=== PATIENT | female | born 1960 | race African-American/Black ===

== ENCOUNTER → 2018-07-06 | Outpatient (CLI) | payer OTHER ==
--- NOTE | 2018-07-06 11:58 | KCIC ---
Limited ultrasound abdomen 07/06/2018 INDICATION: Right upper quadrant abdominal pain. COMPARISON: None available. TECHNIQUE: Sonographic evaluation of the right upper quadrant was performed utilizing grayscale and color Doppler. FINDINGS: Visualized portions of the superior normal. Body and tail are obscured by bowel gas. Proximal aorta measures 2.9 cm. Mid aorta measures 1.9 cm. Distal aorta measures 1.7 cm. IVC is patent. There is increased echogenicity of the hepatic parenchyma suggestive of hepatocellular disease, most commonly hepatic steatosis. There is hepatopedal flow within the main portal vein. There is no intrahepatic or extrahepatic biliary ductal dilatation. Common bile duct measures up to 3 mm. The right hepatic lobe measures 13.5 cm. Gallbladder is normal in appearance without evidence for gallstones, gallbladder wall thickening or pericholecystic fluid. The right kidney measures 10.1 x 4.0 x 5.1 cm. There is no hydronephrosis. No renal calculi are identified. No cystic or solid masses. No free fluid is identified in the right upper quadrant. IMPRESSION: 1. There is increased echogenicity of the hepatic parenchyma suggestive of hepatocellular disease, most commonly hepatic steatosis. This limits evaluation for hepatic masses. 2. No intrahepatic or extrahepatic biliary ductal dilatation. Gallbladder is normal. Electronically signed by: Vivien Raya MD (07/06/2018 11:53 AM) [facility]-[id number]
--- NOTE | 2018-07-08 14:47 | KCIC ---
Bilateral digital screening mammograms: Reason for examination: Routine screening. Comparison is made to previous studies dated 03/27/2011 and 03/28/2010. Interpretation was made with the benefit of CAD. The skin and nipples show no abnormalities. No abnormal axillary lymph nodes are seen. The breast parenchyma shows scattered fibroglandular density. (Breast density: Category B.) There appears to be interval decrease in small nodular densities seen previously. There are no new dominant masses, suspicious calcifications or architectural distortions. Impression: No evidence of malignancy. Recommend routine screening. BI-RADS Category 2: Benign. "Our facility is accredited by the [employer] Mammography Program." This patient's information has been entered into a reminder system for the patient to be notified with the results of her examination and a target date for the next mammogram. Electronically signed by: Karen Mike MD (07/08/2018 2:43 PM) [id number]
== END | disposition home or self-care (01) ==
LOC: KCIC US 08:43
PROVIDERS: ATTEND Nurse Practitioner Family
DX: Z12.31 Encounter for screening mammogram for malignant neoplasm of breast (principal); R10.11 Right upper quadrant pain
CPT/HCPCS: 76705; 77067

== ENCOUNTER → 2019-05-19 | Day surgery (SDC) | payer OTHER ==
[~2019-05-19] MED LIST: ACET325T9 PO; ASPI-630 PO; IV RINGERS,LACTATED 1000ML 1,000 ML IV ONE; IV RINGERS,LACTATED 1000ML 1,000 ML IV SCH; LIDOCAINE 2% PF 5 ML VIAL. ONE; LISI-334 PO; LOVA40TA2 PO; MELO15TA23 PO; PANT20TA2 PO; PROPOFOL 60 ML IV ONE; TRAM50TA PO
--- NOTE | 2019-05-19 11:02 | PREOP HP ---
DATE OF SERVICE: 05/19/2019 REQUESTING PHYSICIAN: Leonor Jacobo APRN PRIMARY CARE PHYSICIAN: Leonor Jacobo APRN REASON FOR PROCEDURE: Epigastric pain and colon cancer screening. HISTORY OF PRESENT ILLNESS: This is a 59-year-old female who presents with epigastric pain and for colorectal cancer screening. ALLERGIES: CODEINE. PAST MEDICAL HISTORY: 1. Depression. 2. Fibromyalgia. 3. Hypertension. 4. Hypercholesterolemia. FAMILY MEDICAL HISTORY: Negative for colorectal cancer. Significant for ulcerative colitis in her mother. MEDICATIONS: MAR reviewed. REVIEW OF SYSTEMS: A 13-point review of systems was done. It is positive as per HPI and otherwise negative. PHYSICAL EXAMINATION: GENERAL: She is a well-developed, well-nourished -[place] female, in no apparent distress. HEENT: Oropharynx is clear. CARDIOVASCULAR: S1, S2. LUNGS: Clear. ABDOMEN: Normoactive bowel sounds, soft, nontender, nondistended. EXTREMITIES: No edema. NEUROLOGIC: Awake, alert and oriented x 3. ASSESSMENT AND PLAN: 1. Epigastric pain. Proceed with upper endoscopy for further evaluation. The risks and benefits including bleeding, perforation, non-diagnosis and sedation have been explained and she has agreed to proceed. 2. Colorectal cancer screening. The risks and benefits of colonoscopy including bleeding, perforation, non-diagnosis and sedation have been explained and she has agreed to proceed. RU MILTON MD DR: MADDISON/sarah JOB#: [id number] / [id number]
[2019-05-19 11:03] VITALS: BP 179/96
--- NOTE | 2019-05-20 18:06 | PATHOLOGY ---
[facility] Accession Number: [id number] . 01 Material submitted: . PART A: small bowel - SMALL BOWEL BIOPSY PART B: stomach - GASTRIC ANTRUM AND BODY. Modifiers: body PART C: esophagus - DISTAL ESOPHAGUS BIOPSY. Modifiers: distal PART D: colon - SIGMOID BIOPSY. Modifiers: sigmoid . 01 Clinical history: . Dysphagia, CRCS . 02 Diagnosis: A. Small bowel biopsies: - No significant pathologic abnormalities. . B. Gastric biopsies, gastric antrum and gastric body: - Chronic gastritis, moderate. . C. Esophageal biopsies, distal esophagus: - Segments of gastric mucosa showing moderate chronic inflammation. . D. Colon biopsy, sigmoid colon: - Prominent mucosal fold. (JPM:mir; 05/20/2019) S 05/20/2019 1057 Local . 02 Comment: Sections of the small bowel biopsy reveal segments of small intestine and duodenal mucosa. Where best oriented, the mucosal villi show no sprue-like changes or significant inflammatory changes. . Sections of the gastric biopsy reveal segments of gastric antral and antral/body transition mucosa showing congestion and moderate chronic inflammation. A properly controlled immunoperoxidase stain for Helicobacter is negative for Helicobacter organism. . Sections of the distal esophageal biopsy reveal segments of gastric mucosa showing moderate chronic inflammation. There is no squamous esophageal mucosa. There are a few goblet cells present within the surface epithelium. There is no evidence of Darby's change, dysplasia, or malignancy. . Sections of the sigmoid colon biopsy reveal a segment of colonic mucosa having features of prominent mucosal fold. There are no adenomatous changes or evdience of malignancy. (JPM:mir; 05/20/2019) . . Special stain performed: Immunoperoxidase stain for Helicobacter on B1 . Electronically signed: . Kobe Tinoco MD, Pathologist NPI- [id number] . 01 Gross description: . A. Received in formalin labeled "Yoshi, Violet[place], small bowel BX," are multiple segments of barber soft tissue measuring 0.8 x 0.3 x 0.1 cm in aggregate dimensions. The specimen is filtered and entirely submitted in cassette A1. . B. Received in formalin labeled "Yoshi, Violetta, gastric antrum and body BX," are 4 segments of barber soft tissue measuring 0.9 x 0.6 x 0.1 cm in aggregate dimensions and ranging from 0.3 to 0.6 cm in maximum dimension. The specimen is submitted entirely in cassette B1. . C. Received in formalin labeled "[place], Violetta, distal esophagus BX," are 4 segments of barber soft tissue measuring 0.5 x 0.5 x 0.2 cm in aggregate dimensions and ranging from 0.3 to 0.5 cm in maximum dimension. The specimen is submitted entirely in cassette C1. . D. Received in formalin labeled "[place], Violetta, sigmoid polyp," is a single segment of barber soft tissue measuring 0.4 cm in maximum dimension. The specimen is entirely submitted in cassette D1. (TSD; 05/19/2019) TOB/TOB 05/19/2019 1754 Local . 02 Pathologist provided ICD-10: K29.50, R13.10 . 02 CPT . 276946, 957681, 546913, [id number], [id number] Specimen Comment: A courtesy copy of this report has been sent to [phone], [phone] Specimen Comment: [id number] Specimen Comment: Report sent to and Performed at: 01 [facility] [address], [place] [id number] MD Ten Pagan MD Phone: [phone] Performed at: 02 [facility] [address], [place] [id number] MD Kobe Tinoco MD Phone: [phone]
== END ==
LOC: ENDOS 08:14
PROVIDERS: ATTEND Internal Medicine Gastroenterology
DX: Z12.11 Encounter for screening for malignant neoplasm of colon (principal); K62.1 Rectal polyp; K29.50 Unspecified chronic gastritis without bleeding; K21.0 Gastro-esophageal reflux disease with esophagitis; K64.0 First degree hemorrhoids; I10 Essential (primary) hypertension; E78.00 Pure hypercholesterolemia, unspecified; M79.7 Fibromyalgia; F32.9 Major depressive disorder, single episode, unspecified
CPT/HCPCS: 43239; 45380; 88305; 88342; J2001; J2704

== ENCOUNTER → 2019-12-14 | Outpatient (CLI) | payer OTHER ==
[2019-05-19 11:03] VITALS: BP 179/96
[~2019-12-14] MED LIST changes: -IV RINGERS,LACTATED 1000ML 1,000 ML IV ONE; -IV RINGERS,LACTATED 1000ML 1,000 ML IV SCH; -LIDOCAINE 2% PF 5 ML VIAL. ONE; -PROPOFOL 60 ML IV ONE
--- NOTE | 2019-12-14 15:58 | KCIC ---
LEFT HAND, VIEWS 3 Indication: Reason: RT HAND PAIN THUMB SIDE S/P FALL 3 WEEKS AGO / Spl. Instructions: / History: Findings: There is no acute fracture or dislocation. There is no bony erosion. Mineralization is normal. There is no radiographically apparent soft tissue swelling or radiopaque foreign body. There are large marginal osteophytes of the third and fourth DIP joints. Small marginal osteophytes fourth PIP joint. Mild narrowing fifth MCP. Joint spaces otherwise maintained. IMPRESSION: No acute fracture. Electronically signed by: Jose Angel Montoya MD (12/14/2019 3:55 PM) [id number]
== END | disposition home or self-care (01) ==
LOC: KCIC 10:50
PROVIDERS: ATTEND Nurse Practitioner Family
DX: S69.91XA Unspecified injury of right wrist, hand and finger(s), initial encounter (principal); X58.XXXA Exposure to other specified factors, initial encounter; Y93.89 Activity, other specified; Y92.89 Other specified places as the place of occurrence of the external cause; Y99.8 Other external cause status; M25.731 Osteophyte, right wrist
CPT/HCPCS: 73130

== ENCOUNTER → 2020-03-26 | Outpatient (CLI) | payer OTHER ==
[2019-05-19 11:03] VITALS: BP 179/96
--- NOTE | 2020-03-26 09:53 | KCIC ---
EXAM: Dual energy x-ray absorptiometry (DEXA). HISTORY: SURGICAL MENOPAUSE. COMPARISON: None available. TECHNIQUE: Dual energy x-ray absorptiometry of the lumbar spine and left hip was performed. Calculation of bone mineral density based on standard deviations above or below the expected young adult normal value (T-score) was completed. FINDINGS: LUMBAR SPINE: The AVG BMD OF the L1-L3 region = 1.428 gm/cm2, T-score = 3.7, Z-score = 4.5. Findings are consistent with normal BMD. Degenerative changes are noted in the lumbar spine. This can artificially elevate the calculation of bone density. Femoral Necks: The BMD of the left femoral neck = 1.329 gm/cm2, T-score = 3.2, Z-score = 2.. The Findings are consistent with normal BMD. IMPRESSION: Normal bone mineral density in the spine and left hip. Electronically signed by: Anjel Grace MD (03/26/2020 9:50 AM) [id number]
--- NOTE | 2020-03-26 19:06 | KCIC ---
BILATERAL SCREENING MAMMOGRAM History: Routine screening. Comparison: Bilateral mammogram July 06, 2018. Technique: Routine bilateral digital mammogram views were obtained. Findings: Breast Tissue Density B : There are scattered areas of fibroglandular density. There appears to be deodorant artifact in the axilla, more apparent on the right. There is a presumed prominent skinfold in the right axilla. There are no dominant masses, suspicious microcalcifications, or architectural distortion. IMPRESSION: No mammographic evidence of malignancy. Recommend routine screening. BI-RADS category 2: Benign findings. The images were reviewed with computer aided detection. Patient information is entered into the reminder system with a target due date for the next screening mammogram. Mammography is the most sensitive method for finding small breast cancers, but it does not detect them all and is not a substitute for careful clinical examination. A negative mammogram does not negate a clinically suspicious finding and should not result in delay in biopsying a clinically suspicious abnormality. "Our facility is accredited by the [employer] Mammography Program." Electronically signed by: Jose Angel Montoya MD (03/26/2020 7:03 PM) [id number]
== END ==
LOC: KCIC MAMMO 08:50
PROVIDERS: ATTEND Nurse Practitioner Family
DX: Z12.31 Encounter for screening mammogram for malignant neoplasm of breast (principal); Z78.0 Asymptomatic menopausal state; M47.816 Spondylosis without myelopathy or radiculopathy, lumbar region
CPT/HCPCS: 77067; 77080

== ENCOUNTER → 2020-07-13 | Outpatient (CLI) | payer OTHER ==
[2019-05-19 11:03] VITALS: BP 179/96
[~2020-07-13] MED LIST changes: -LISI-334 PO; +LISI20TA18 PO
--- NOTE | 2020-07-13 08:54 | RAD ---
EXAM: Gallbladder Ultrasound INDICATION: Reason: RUQ PAIN / Spl. Instructions: / History: TECHNIQUE: Real-time ultrasound of the gallbladder was performed with permanent freeze-frame documen tation. COMPARISON: None FINDINGS: BILIARY:?Gallbladder is unremarkable. No biliary ductal dilatation. The common bile duct measures 0 p oint cm. OTHER: Visualized liver and pancreas are unremarkable. The IVC is not well visualized. The right kidn ey contains a 5 mm superior pole nonobstructing kidney stone. IMPRESSION: 1. Apart from nonobstructing 5 mm stone in right kidney, ultrasound right upper quadrant abdomen is u nremarkable. Electronically signed by: Lindsey Long MD (07/13/2020 8:51 AM) [id number]
== END ==
LOC: US 09:25
PROVIDERS: ATTEND Nurse Practitioner Family
DX: N20.0 Calculus of kidney (principal)
CPT/HCPCS: 76705

== ENCOUNTER 2021-10-08 11:21 | Emergency (ER) | payer OTHER ==
[~2021-10-08] VITALS: Ht 162.6 cm; Wt 89.0 kg
[2021-10-08 11:29] VITALS: BP 148/93
--- NOTE | 2021-10-08 11:39 | PHYS DOC ---
Past Medical History Past Medical History: Bronchitis, Hypertension Past Surgical History: Hysterectomy, Other Additional Past Surgical Histo: left rotator cuff; bilateral knee Alcohol Use: None Drug Use: None Adult General Chief Complaint Chief Complaint: KNEE INJURY [facility] Patient is a 61 year old female who presents with bilateral knee pain after a fall. Patient describes that she had a mechanical fall on Thursday, 48 hours ago. She landed on both knees. She comes to the ER today complaining of pain in the right knee and the left. Left knee is worse and did sustain some minor abrasions. She has been able to weight-bear although with discomfort. No other injuries are reported Review of Systems Review of Systems Constitutional: Denies fever or chills HENT: Denies Respiratory: Denies Cardiovascular: No additional information GI: Denies Musculoskeletal: As documented in HPI Integument: Denies rash or skin lesions Neurologic: Denies headache All other systems were reviewed and found to be within normal limits, except as documented in this note. Allergies Allergies Allergies Coded Allergies Type Severity Reaction Last Updated Verified codeine Allergy Severe pass out, abd pain 05/19/19 Yes gabapentin Allergy Unknown UNKNOWN 10/08/21 Yes pregabalin Allergy Unknown UNKNOWN 10/08/21 Yes Physical Exam Physical Exam Constitutional: Well developed, well nourished, no acute distress, non-toxic appearance HENT: Normocephalic, atraumatic, bilateral external ears normal Eyes: PERRLA Neck: Normal range of motion Lungs & Thorax: normal respiratory effort Abdomen: Bowel sounds normal, soft Skin: Warm, dry Back: Normal ROM Extremities: No gross deformity about the right knee. Some mild subjective tenderness with passive range of motion. No effusion. The left knee has very subtle soft tissue swelling and a couple of superficial abrasions on the anterior aspect. Otherwise, also has a normal exam. Neurologic: Alert and oriented X 3 Psychologic: Affect normal Current Patient Data Vital Signs Vital Signs Date Time Temp Pulse Resp B/P (MAP) Pulse Ox O2 Delivery O2 Flow Rate FiO2 10/08/21 11:29 98.3 82 16 148/93 (111) 97 Room Air 98.3 EKG EKG [] Radiology/Procedures Radiology/Procedures [] Course & Med Decision Making Course & Med Decision Making Pertinent Labs and Imaging studies reviewed. (See chart for details) 11:45: Seen and examined. Plain film imaging ordered. Minor abrasions are noted on the left knee but patient does not need tetanus immunization today. No other more severe injuries present. 13:00: X-rays are completed. No acute findings. Patient is stable for discharge home. Recommended she use [id number] medications as needed. Follow-up with primary care doctor if she continues to have pain after 1 to 2 weeks. Dragon Disclaimer Dragon Disclaimer This electronic medical record was generated, in whole or in part, using a voice recognition dictation system. Departure Departure Impression: Primary Impression: Contusion, knee Disposition: 01 HOME / SELF CARE / HOMELESS Condition: GOOD Referrals: LIAM TAYLOR APRN (PCP) Patient Instructions: Contusion, Trom-fi-Opcu HUMZA CAMPUZANO DO October 08, 2021 11:39
--- NOTE | 2021-10-08 12:35 | RAD ---
EXAM: XR KNEE 3 VIEWS 10/08/2021 11:52 AM CLINICAL INDICATION: Fall, bilateral knee pain right greater than left COMPARISON: None TECHNIQUE: AP, oblique, and lateral views of the right and left knee FINDINGS: No acute fracture. Alignment is normal. There is mild degenerative joint disease of the kn ees, greatest in the medial compartments. No joint effusion. Soft tissues normal. IMPRESSION: No acute osseous abnormality. Mild bilateral degenerative joint disease. Electronically signed by: Sherry Stafford MD (10/08/2021 12:32 PM) [id number]
[2021-10-08] MEDS ORDERED: traMADol 50 MG TABLET PO ONE (13:15)
[2021-10-08] MEDS ORDERED: traMADol 50 MG TABLET ONE (13:15)
== END 2021-10-08 13:17 | disposition home or self-care (01) ==
LOC: ER 11:21
DX: S80.02XA Contusion of left knee, initial encounter (principal); S80.01XA Contusion of right knee, initial encounter; I10 Essential (primary) hypertension; Z88.5 Allergy status to narcotic agent; Z88.8 Allergy status to other drugs, medicaments and biological substances; W18.39XA Other fall on same level, initial encounter; Y93.89 Activity, other specified; Y92.89 Other specified places as the place of occurrence of the external cause; Y99.8 Other external cause status
CPT/HCPCS: 99283; 99284; 73562-50